=== PATIENT | male | born 1955 | race Caucasian/White ===

== ENCOUNTER 2018-10-11 04:47 | Emergency (ER) | payer OTHER ==
[2018-10-11 05:50] LABS: #Basophils 0.1 thou/uL (0.0-0.2); #Eosinphils 0.2 thou/uL (0.0-0.7); #Lymphocytes 1.5 thou/uL (1.20-3.40); #Monocytes 0.5 thou/uL (0.11-0.59); %Basophils 2.1 % (0.0-1.0); %Eosinophils 2.9 % (0.0-10.0); %Lymphocytes 28.7 % (21.0-51.0); %Monocytes 9.7 % (0.0-10.0); %Neutrophils 56.7 % (42.0-75.0); Hemoglobin 16.5 g/dL (14.0-18.0); Mean Corpuscular HGB CONC 33.4 g/dL (32.0-36.0); Mean Corpuscular Hemoglobin 31.7 pg (27.0-31.0); Mean Corpuscular Volume 94.9 fL (78.0-98.0); Mean Platelet Volume 9.3 fL (7.4-10.4); Platelet Count 161 thou/uL (130-400); RBC Distribution Width 12.2 % (11.5-14.5); White Blood Cell (WBC) Count 5.4 thou/uL (4.8-10.8)
[2018-10-11 06:04] LABS: ALT (SGPT) 23 U/L (8-55); AST (SGOT) 18 U/L (5-34); Albumin 4.2 g/dL (3.4-4.8); Alkaline Phosphatase 75 U/L (40-150); Anion Gap 12 mmol/L (10-20); BUN (Urea Nitrogen) 17 mg/dL (8.4-25.7); Bilirubin, Total 3.1 mg/dL (0.2-1.2); Calc. Creatinine Clearance 0 mL/min (70-130); Calcium 9.2 mg/dL (7.8-10.44); Carbon Dioxide 25 mmol/L (23-31); Chloride 108 mmol/L (98-107); Estimated GFR-MDRD 72; Globulin 1.8 g/dL (2.4-3.5); Glucose 96 mg/dL (80-115); Potassium 4.2 mmol/L (3.5-5.1); Sodium 141 mmol/L (136-145)
--- NOTE | 2018-10-11 07:35 | CT ---
CT OF HEAD NONCONTRAST: INDICATION: Left arm numbness. FINDINGS: There is no acute intracranial hemorrhage, mass effect, midline shift, or ventriculomegaly. No fluid level of the paranasal sinuses. IMPRESSION: No acute intracranial abnormality. Should neurologic deficits persist, consider followup with brain MRI. POS: TOLU
== END 2018-10-11 09:05 | disposition home or self-care (01) ==
LOC: ERS 04:47
DX: R20.2 Paresthesia of skin (principal); M79.602 Pain in left arm; G43.909 Migraine, unspecified, not intractable, without status migrainosus; G51.0 Bell's palsy
CPT/HCPCS: 36415; 70450; 80053; 84484; 85025; 93005

== ENCOUNTER 2018-10-17 13:45 | Outpatient (CLI) | payer OTHER ==
[2018-10-17 14:43] LABS: Thyroid Stimulating Hormone 1.8381 uIU/mL (0.35-4.94)
--- NOTE | 2018-10-17 16:19 | RAD ---
LUMBAR SPINE 2 VIEWS:: Date: 10/17/18 INDICATION: Low back pain and left-sided sciatica. FINDINGS: There are five lumbar-type vertebrae. There is mild multilevel disc degenerative disease, most pronou nced at L5-S1. Spinal alignment is preserved. Vertebral body heights appear within normal limits. The re is mild suggested levoscoliosis centered at L3. Cholecystectomy clips seen in right upper quadrant . SI joints are normal appearing. IMPRESSION: Mild spondylosis lumbar spine. POS: SARAH
[2018-10-17 17:54] LABS: Albumin (w/Testosterone Panel) 4.4 g/dL
[2018-10-17 18:10] LABS: Testosterone, Total 323.9 ng/dL (221-716); Vitamin D, 25 Hydroxy 23.3 ng/ml (> 30.0)
[2018-10-17 18:27] LABS: Sex Hormone Binding Globulin 33.1 nmol/L (11-78); Testosterone, Free 63.4 pg/mL (47-244)
== END 2018-10-17 13:46 | disposition home or self-care (01) ==
LOC: SCSRAD 13:45
PROVIDERS: ATTEND Nurse Practitioner Family
DX: M54.42 Lumbago with sciatica, left side (principal)
CPT/HCPCS: 36415; 72100; 82306; 84270; 84403; 84443

== ENCOUNTER 2019-07-25 14:08 | Outpatient (CLI) | payer OTHER ==
--- NOTE | 2019-07-25 15:04 | CT ---
CT Stone Protocol 07/25/2019 12:00 AM HISTORY: Hematuria. COMPARISON: 09/03/2015 Technique: Multiple contiguous axial CT images are obtained through the abdomen and pelvis without IV contrast. Coronal reformats are provided. FINDINGS: This examination is limited for the evaluation of solid organs and vascular structures due to the lac k of intravenous contrast. Lower Chest: Mild atelectasis is present at the left lung base. Minimal pleural-based nodular densiti es are seen at the right lung base similar to prior study which may also be related to dependent atelectasis. Abdomen: Liver: Grossly normal non-enhanced CT appearance. Gallbladder: Surgically absent. Pancreas: Grossly normal nonenhanced CT appearance. Spleen: Grossly normal nonenhanced CT appearance. Adrenals: Mild nodular thickening involving the left adrenal gland which is a stable finding. Kidneys: Nonobstructing right renal calculi are again present. There are scattered punctate nonobstru cting left renal calculi also seen. No overt hydronephrosis is present. Ureters: Previously noted right ureteral calculus is no longer seen. No ureteral calculi are seen garry aterally.. Pelvis: Urinary bladder: There is a calculus in the dependent portion of the urinary bladder measuring 6 mm. Reproductive Organs: No pelvic masses. Lymph Nodes: No enlarged lymph nodes. Bowel: Colonic diverticulosis is present. Loops of small bowel are normal in caliber. Appendix: The appendix is normal in caliber. Peritoneum: No free fluid, free air, or fluid collection. Retroperitoneum: within normal limits. Vessels: Abdominal aorta is normal in caliber.. Abdominal Wall: There is a fat-containing left inguinal canal. Bones: Degenerative changes are seen in the spine. There is slight retrolisthesis of L5 on S1. IMPRESSION: 1. Nonobstructing bilateral renal calculi. 2. Approximately 6 mm calculus dependent portion of the urinary bladder. 3. Colonic diverticulosis.
== END 2019-07-25 14:09 | disposition home or self-care (01) ==
LOC: SCSCT 14:08
PROVIDERS: ATTEND Nurse Practitioner Family
DX: R31.9 Hematuria, unspecified (principal); N20.0 Calculus of kidney; N21.0 Calculus in bladder; K57.30 Diverticulosis of large intestine without perforation or abscess without bleeding
CPT/HCPCS: 74176